=== PATIENT | female | born 1940 | race Caucasian/White ===

== ENCOUNTER → 2020-04-20 | Outpatient (CLI) | payer MEDICARE, BC | LOC: KOH-I 15:34 | DX: M21.611 Bunion of right foot (principal); M21.612 Bunion of left foot | CPT/HCPCS: 73630 ==

== ENCOUNTER → 2021-06-07 | Outpatient (CLI) | payer MEDICARE, BC | LOC: EXRD 15:14 | DX: R23.1 Pallor (principal) | CPT/HCPCS: 93925 ==